=== PATIENT | female | born 1955 | race Caucasian/White ===

== ENCOUNTER 2025-05-22 08:10 | Emergency (ER) | payer MEDICARE, BC ==
[2025-05-22] MEDS ORDERED: predniSONE 20 MG TAB ONE (08:45)
[2025-05-22] MEDS ORDERED: Lidocaine 1% PF 5 ML VIAL ONE (09:17)
[2025-05-22] MEDS ORDERED: cefTRIAXone (ROCEPHIN) 1 GM VIAL ONE (09:17)
== END 2025-05-22 08:28 | disposition home or self-care (01) ==
LOC: BURERS 08:10
DX: J20.9 Acute bronchitis, unspecified (principal); J02.9 Acute pharyngitis, unspecified; J01.00 Acute maxillary sinusitis, unspecified
CPT/HCPCS: 71046; 87081; 87428; 87430; J0696; J1885; J7512